=== PATIENT | male | born 2000 | race Caucasian/White ===

== ENCOUNTER 2021-01-06 16:34 | Emergency (ER) | payer OTHER ==
[~2021-01-06] VITALS: Ht 180.3 cm; Wt 63.6 kg
[2021-01-06 16:41] VITALS: BP 116/69
--- NOTE | 2021-01-06 17:57 | NUR ---
EYE CART AT BEDSIDE
[2021-01-06] MEDS ORDERED: proparacaine 0.5% ophthalmic drops 15ml EACHEYE ONE (19:00)
[2021-01-06] MEDS ORDERED: CIPR2.5D21 RIGHTEYE (19:47)
== END 2021-01-06 20:16 | disposition home or self-care (01) ==
LOC: ER 16:35
DX: S05.01XA Injury of conjunctiva and corneal abrasion without foreign body, right eye, initial encounter (principal); H57.89 Other specified disorders of eye and adnexa; Z88.0 Allergy status to penicillin; Z79.899 Other long term (current) drug therapy; X58.XXXA Exposure to other specified factors, initial encounter; Y93.89 Activity, other specified; Y92.89 Other specified places as the place of occurrence of the external cause; Y99.8 Other external cause status
CPT/HCPCS: 99283

== ENCOUNTER → 2021-02-20 | Emergency (ER) | payer OTHER ==
[~2021-02-20] VITALS: Ht 180.3 cm; Wt 60.0 kg
[~2021-02-20] MED LIST: LIDOcaine 1% 30ml preserv. free vial IJ STA; LIDOcaine 1% W/epiNEPHrine 1:200,000 10ml vial IJ STA; LIDOcaine 1% w/epiNEPHrine 1:200,000 30ml vial IJ STA; TETanus/Pertussis (Acell)/Diphther VAC/PF (Tdap-Adult) 0.5ml syringe IMVAC ONE
[2021-02-20 21:35] VITALS: BP 120/69
== END | disposition home or self-care (01) ==
LOC: ER 20:57
DX: S61.412A Laceration without foreign body of left hand, initial encounter (principal); Z88.0 Allergy status to penicillin; W22.8XXA Striking against or struck by other objects, initial encounter; Y93.89 Activity, other specified; Y92.89 Other specified places as the place of occurrence of the external cause; Y99.8 Other external cause status
CPT/HCPCS: 12001; 90471; 90715; 99283